=== PATIENT | female | born 1990 | race Caucasian/White ===

== ENCOUNTER 2017-12-10 11:00 | Emergency (ER) | payer OTHER ==
[2017-12-10] MEDS: ONDANSETRON 4 MG INJ IV ×2 (11:56→14:52)
[2017-12-10] MEDS: HYDROmorphONE 1 MG/5 ML IV SYRINGE IV ×2 (11:57→14:52)
[2017-12-10] MEDS: SOD CHLORIDE 0.9% 1,000 ML IV ×2 (11:57→15:33)
[2017-12-10 12:07] LABS: ADD MAN DIFF? NO
[2017-12-10 12:10] LABS: BASOPHILS % 0.7 % (0.0-2.0); EOSINOPHILS % 0.3 % (0.0-7.0); HEMATOCRIT 33.9 % (37.0-47.0); HEMOGLOBIN 12.1 g/dl (12.0-16.0); LYMPHOCYTES # 1.2 10^3/ul (0.8-2.9); LYMPHOCYTES % 20.1 % (15.0-51.0); MEAN CORPUSCULAR HEMOGLOBIN 31.8 pg (29.0-33.0); MEAN CORPUSCULAR HGB CONC 35.7 g/dl (32.0-37.0); MEAN CORPUSCULAR VOLUME 89.2 fl (82.0-101.0); MEAN PLATELET VOLUME 11.6 fl (7.4-10.4); MONOCYTE # 0.5 10^3/ul (0.3-0.9); MONOCYTES % 9.3 % (0.0-11.0); NEUTROPHILS % 69.4 % (39.0-77.0); PLATELET COUNT 239 10^3/UL (140-415); RED CELL DISTRIBUTION WIDTH 11.7 % (11.5-14.5)
[2017-12-10 12:10] LABS: WHITE BLOOD COUNT 5.8 10^3/ul (4.8-10.8)
[2017-12-10] MEDS: LORAZEPAM 2 MG INJ IV (12:12)
[2017-12-10 12:26] LABS: ALANINE AMINOTRANSFERASE 24 IU/L (13-69); ALBUMIN 4.4 g/dl (3.3-4.9); ALBUMIN/GLOBULIN RATIO 1.46; ALKALINE PHOSPHATASE 74 IU/L (42-121); ANION GAP 18 (8-16); ASPARTATE AMINO TRANSFERASE 20 IU/L (15-46); BILIRUBIN,INDIRECT 0.6 mg/dl (0-1.1); BILIRUBIN,TOTAL 0.6 mg/dl (0.2-1.3); BLOOD UREA NITROGEN 11 mg/dl (7-20); CALCIUM 9.7 mg/dl (8.4-10.2); CARBON DIOXIDE 19 mmol/L (21-31); CHLORIDE 107 mmol/L (97-110); GLUCOSE 106 mg/dl (70-220); POTASSIUM 3.9 mmol/L (3.5-5.1); SODIUM 140 mmol/L (135-144); TOTAL PROTEIN 7.4 g/dl (6.1-8.1)
[2017-12-10 12:33] LABS: INR 1.01; PROTIME 13.4 Sec (11.9-14.9)
[2017-12-10] MEDS: PANTOPRAZOLE IV 80 MG in SOD CHLORIDE 0.9% 100 ML IVPB (12:35)
[2017-12-10] MEDS: PANTOPRAZOLE IV 80 MG in SOD CHLORIDE 0.9% 100 ML IV (12:35)
[2017-12-10] MEDS ORDERED: ONDANSETRON 4 MG INJ IV (15:00)
[2017-12-10] MEDS ORDERED: ACETAMINOPHEN 325 MG TAB PO (15:00)
[2017-12-10 15:26] LABS: B-TYPE NATRIURETIC PEPTIDE 72 PG/ML (0-125)
[2017-12-10] MEDS: morphine 10 MG INJ IV (18:03)
[2017-12-10] MEDS: DIPHENHYDRAMINE 50 MG INJ IV (18:04)
[2017-12-10] MEDS: METOCLOPRAMIDE 10 MG INJ IV (18:04)
== END 2017-12-10 21:15 | disposition short-term general hospital (02) ==
LOC: E/R 21:15
DX: K92.2 Gastrointestinal hemorrhage, unspecified (principal); I50.9 Heart failure, unspecified; R07.9 Chest pain, unspecified
CPT/HCPCS: 36415; 71045; 80053; 83880; 85025; 85610; 85730; 86850; 86900; 86901; 93005; 96374; 96375; 96376; 99285-25